=== PATIENT | female | born 1960 | race Caucasian/White ===

== ENCOUNTER 2022-08-13 13:27 | Emergency (ER) | payer BC ==
[2022-08-13 13:46] VITALS: RESP 18; BMI 27.3
[2022-08-13] MEDS ORDERED: ASPIRIN 325 MG ENTERIC COATED TABLET (FP) PO ONE (14:33)
[2022-08-13] MEDS ORDERED: MAG HYDROX/AL HYDROX/SIMETH 30 ML UNIT-DOSE CUP PO ONE (14:34)
[2022-08-13] MEDS ORDERED: ACETAMINOPHEN 1000 MG/100 ML BAG IVPB ONE (14:34)
[2022-08-13] MEDS ORDERED: ONDANSETRON 4 MG/2 ML VIAL IVPUSH ONE (14:34)
[2022-08-13] MEDS ORDERED: FAMOTIDINE 20 MG/50 ML IVPB 20 MG/50 ML MG IVPB ONE ×2 (14:34→14:39)
[2022-08-13] MEDS ORDERED: ASPIRIN 325 MG ENTERIC COATED TABLET (FP) ONE (14:38)
[2022-08-13] MEDS ORDERED: ACETAMINOPHEN INJECTION 100 ML IVPB ONE (14:39)
[2022-08-13] MEDS ORDERED: MAG HYDROX/AL HYDROX/SIMETH 30 ML UNIT-DOSE CUP ONE (14:39)
[2022-08-13] MEDS ORDERED: ONDANSETRON 4 MG/2 ML VIAL ONE (14:39)
[2022-08-13 16:01] LABS: BASO % 0.2 % (0-2.0); EOS % 0.2 % (0-4.5); HEMATOCRIT 38.6 % (32.4-45.2); HEMOGLOBIN 12.9 GM/dL (10.7-15.3); LYMPH % 3.2 % (8-40); MCH 29.7 pg (25.7-33.7); MCHC 33.4 g/dl (32.0-36.0); MEAN CELL VOLUME 89.1 fl (80-96); MEAN PLT VOLUME 8.9 fl (7.5-11.1); MONO % 3.1 % (3.8-10.2); NEUT % 93.3 % (42.8-82.8); PLATELET COUNT 190 10^3/uL (134-434); RBC 4.33 M/mm3 (3.60-5.2); RDW 13.1 % (11.6-15.6); WHITE BLOOD COUNT 7.8 K/mm3 (4.0-10.0)
[2022-08-13 16:19] LABS: MAGNESIUM 1.9 mg/dL (1.8-2.4)
[2022-08-13 16:20] LABS: ALBUMIN 3.9 g/dl (3.4-5.0); BLOOD UREA NITROGEN 17.5 mg/dL (7-18)
[2022-08-13 16:23] LABS: CREATININE 0.7 mg/dL (0.55-1.3)
[2022-08-13 16:24] LABS: BILIRUBIN,TOTAL 0.7 mg/dL (0.2-1); INR 1.14 (0.83-1.09); PROTHROMBIN TIME (PATIENT) 13.1 SEC (9.7-13.0); TOT PROT 6.6 g/dl (6.4-8.2)
[2022-08-13 16:27] LABS: ACTIVATED PTT 31.7 SECONDS (25.2-36.5)
[2022-08-13 16:30] LABS: N-TERMINAL BNP 139.3 pg/ml (5-125)
[2022-08-13 16:46] LABS: ANISOCYTOSIS 1+; MACROCYTOSIS 0; OVALOCYTE 1+
[2022-08-13 16:57] VITALS: BP 114/77; PULSE 82; TEMP 98.6
== END 2022-08-13 18:49 | disposition home or self-care (01) ==
LOC: JER 13:27
PROC: 3E0333Z Introduction of Anti-inflammatory into Peripheral Vein, Percutaneous Approach (ICD-10-PCS; principal; 2022-08-13)
PROC: 3E033GC Introduction of Other Therapeutic Substance into Peripheral Vein, Percutaneous Approach (ICD-10-PCS; 2022-08-13)
PROC: 3E033GC Introduction of Other Therapeutic Substance into Peripheral Vein, Percutaneous Approach (ICD-10-PCS; 2022-08-13)
DX: R10.13 Epigastric pain (principal); R11.2 Nausea with vomiting, unspecified
CPT/HCPCS: 0241U-QW; 36415; 71045-TC-FY; 76705-TC; 80053; 83690; 83735; 83880; 84484; 85025; 85610; 85730; 86850; 86900; 86901; 93005; 93010; 99285-25

== ENCOUNTER 2023-02-11 04:16 | Day surgery (SDC) | payer BC ==
[2023-02-09 13:10] VITALS: BMI 26.5
[2023-02-11 09:35] VITALS: TEMP 98.1
[2023-02-11 10:06] VITALS: PULSE 65
[2023-02-11 10:27] VITALS: BP 114/76; RESP 18
== END 2023-02-11 10:08 | disposition home or self-care (01) ==
LOC: JASU-ENDO 04:16
PROVIDERS: ATTEND Internal Medicine Gastroenterology
PROC: 0DJD8ZZ Inspection of Lower Intestinal Tract, Via Natural or Artificial Opening Endoscopic (ICD-10-PCS; principal; 2023-02-11 09:00)
DX: Z12.11 Encounter for screening for malignant neoplasm of colon (principal); K57.30 Diverticulosis of large intestine without perforation or abscess without bleeding; K64.8 Other hemorrhoids